=== PATIENT | male | born 1970 | race African-American/Black ===

== ENCOUNTER 2021-03-02 14:28 | Inpatient (IN) | payer OTHER ==
[2021-03-02 15:12] VITALS: BMI 21.2
[2021-03-02] MEDS ORDERED: ACETAMINOPHEN 325 MG TABLET (FP) PO PRN ×2 (16:46)
[2021-03-02] MEDS ORDERED: diazePAM 5 MG TABLET PO PRN (16:46)
[2021-03-02] MEDS ORDERED: MAGNESIUM HYDROX 2400MG/30ML ORAL SUSPENSION 30 ML CUP PO PRN (16:46)
[2021-03-02] MEDS ORDERED: NICOTINE POLACRILEX 2 MG GUM BUC PRN (16:46)
[2021-03-02] MEDS ORDERED: NICOTINE 10 MG CARTRIDGE (INHALER) IH PRN (16:46)
[2021-03-02] MEDS ORDERED: methaDONE HCL 10 MG TABLET (FOR DETOX USE ONLY) PO ONE (16:46)
[2021-03-02] MEDS ORDERED: clonazePAM 0.5 MG ODT TABLETS SL PRN (16:46)
[2021-03-02] MEDS ORDERED: NALOXONE HCL 0.4 MG/ML VIAL IM PRN (16:46)
[2021-03-02] MEDS ORDERED: MAG HYDROX/AL HYDROX/SIMETH 30 ML UNIT-DOSE CUP PO PRN (16:46)
[2021-03-02] MEDS ORDERED: MENTHOL/PHENOL 1 EACH UD MM PRN (16:46)
[2021-03-02] MEDS ORDERED: MAGNESIUM CITRATE 300 ML BOTTLE PO PRN (16:46)
[2021-03-02] MEDS ORDERED: diazePAM 5 MG TABLET ONE ×2 (20:34→23:50)
[2021-03-02] MEDS ORDERED: methaDONE HCL 10 MG TABLET (FOR DETOX USE ONLY) ONE (20:34)
[2021-03-02] MEDS: diazePAM 5 MG TABLET PO SCH ×2 (20:37→23:50)
[2021-03-02] MEDS: MELATONIN 5 MG TABLETS PO SCH (23:48)
[2021-03-02] MEDS: THIAMINE HCL 100 MG TABLET (FP) PO SCH (23:49)
[2021-03-03] MEDS ORDERED: cloNIDine HCL 0.1 MG TABLET ONE ×2 (04:41→10:33)
[2021-03-03] MEDS ORDERED: diazePAM 5 MG TABLET ONE ×2 (04:41→10:31)
[2021-03-03] MEDS ORDERED: IBUPROFEN 400 MG TABLET (FP) PO ONE (04:42)
[2021-03-03] MEDS: IBUPROFEN 400 MG TABLET (FP) PO PRN (04:44)
[2021-03-03] MEDS: cloNIDine HCL 0.1 MG TABLET PO PRN ×2 (04:45→10:35)
[2021-03-03] MEDS: diazePAM 5 MG TABLET PO SCH ×4 (04:45→22:23)
[2021-03-03] MEDS: metFORMIN HCL 500 MG TABLET (FP) PO SCH ×2 (07:07→17:15)
[2021-03-03 10:18] LABS: HEMATOCRIT 29.6 % (35.4-49); HEMOGLOBIN 10.6 GM/dL (11.7-16.9); MCH 33.3 pg (25.7-33.7); MCHC 35.8 g/dl (32.0-35.9); MEAN PLT VOLUME 7.9 fl (7.5-11.1); PLATELET COUNT 262 10^3/uL (134-434); RBC 3.18 M/mm3 (4.00-5.60); RDW 12.1 % (11.9-15.9); WHITE BLOOD COUNT 5.2 K/mm3 (4.0-10.0)
[2021-03-03 10:21] LABS: CALCIUM 7.9 mg/dL (8.5-10.1)
[2021-03-03 10:23] LABS: ALBUMIN 2.5 g/dl (3.4-5.0); BLOOD UREA NITROGEN 16.5 mg/dL (7-18)
[2021-03-03 10:26] LABS: CREATININE 1.2 mg/dL (0.55-1.3)
[2021-03-03 10:27] LABS: BILIRUBIN,TOTAL 0.4 mg/dL (0.2-1); TOT PROT 5.7 g/dl (6.4-8.2)
[2021-03-03] MEDS ORDERED: methaDONE HCL 10 MG TABLET (FOR DETOX USE ONLY) ONE (10:32)
[2021-03-03] MEDS: PRENATAL VITAMINS W/ FOLIC ACID TABLET (FP) PO SCH (10:36)
[2021-03-03] MEDS: ASPIRIN COATED 81 MG TABLET.EC PO SCH (13:19)
[2021-03-03] MEDS: BISMUTH SUBSALICYLATE 524 MG/30 ML PO PRN ×2 (18:00→22:25)
[2021-03-03] MEDS: THIAMINE HCL 100 MG TABLET (FP) PO SCH (22:23)
[2021-03-03] MEDS: MELATONIN 5 MG TABLETS PO SCH (22:23)
[2021-03-04] MEDS: diazePAM 5 MG TABLET PO SCH ×3 (05:51→22:22)
[2021-03-04] MEDS: metFORMIN HCL 500 MG TABLET (FP) PO SCH ×2 (06:41→17:23)
[2021-03-04] MEDS ORDERED: methaDONE HCL 10 MG TABLET (FOR DETOX USE ONLY) PO ONE (10:00)
[2021-03-04] MEDS: ASPIRIN COATED 81 MG TABLET.EC PO SCH (10:25)
[2021-03-04] MEDS: PRENATAL VITAMINS W/ FOLIC ACID TABLET (FP) PO SCH (10:25)
[2021-03-04] MEDS: BISMUTH SUBSALICYLATE 524 MG/30 ML PO PRN (10:27)
[2021-03-04] MEDS: cloNIDine HCL 0.1 MG TABLET PO PRN ×2 (17:51→22:15)
[2021-03-04] MEDS: THIAMINE HCL 100 MG TABLET (FP) PO SCH (22:15)
[2021-03-04] MEDS: MELATONIN 5 MG TABLETS PO SCH (22:16)
[2021-03-05] MEDS: diazePAM 5 MG TABLET PO SCH ×2 (05:56→17:41)
[2021-03-05] MEDS: IBUPROFEN 400 MG TABLET (FP) PO PRN ×2 (06:41→21:53)
[2021-03-05] MEDS: metFORMIN HCL 500 MG TABLET (FP) PO SCH ×2 (07:14→17:38)
[2021-03-05] MEDS: METHOCARBAMOL 500 MG TABLET PO PRN ×2 (08:52→17:38)
[2021-03-05] MEDS ORDERED: methaDONE HCL 10 MG TABLET (FOR DETOX USE ONLY) ONE (09:24)
[2021-03-05] MEDS: ASPIRIN COATED 81 MG TABLET.EC PO SCH (10:20)
[2021-03-05] MEDS: PRENATAL VITAMINS W/ FOLIC ACID TABLET (FP) PO SCH (10:20)
[2021-03-05] MEDS: MELATONIN 5 MG TABLETS PO SCH (21:52)
[2021-03-05] MEDS: THIAMINE HCL 100 MG TABLET (FP) PO SCH (21:52)
[2021-03-06] MEDS: IBUPROFEN 400 MG TABLET (FP) PO PRN ×2 (05:48→22:06)
[2021-03-06] MEDS ORDERED: diazePAM 5 MG TABLET PO ONE (06:00)
[2021-03-06] MEDS: metFORMIN HCL 500 MG TABLET (FP) PO SCH ×2 (06:34→16:36)
[2021-03-06] MEDS ORDERED: methaDONE HCL 10 MG TABLET (FOR DETOX USE ONLY) PO ONE (10:00)
[2021-03-06] MEDS: PRENATAL VITAMINS W/ FOLIC ACID TABLET (FP) PO SCH (10:04)
[2021-03-06] MEDS: ASPIRIN COATED 81 MG TABLET.EC PO SCH (10:04)
[2021-03-06] MEDS: METHOCARBAMOL 500 MG TABLET PO PRN ×2 (10:06→22:06)
[2021-03-06] MEDS: amLODIPine BESYLATE 5 MG TABLET (FP) PO SCH (14:01)
[2021-03-06] MEDS: INSULIN SLIDING SCALE (NOVOLOG) 1 VIAL SQ SCH (16:31)
[2021-03-06] MEDS ORDERED: INSULIN (NOVOLOG) ASPART 100 UNITS/ML 10ML VIAL ONE (16:33)
[2021-03-06] MEDS: THIAMINE HCL 100 MG TABLET (FP) PO SCH (22:04)
[2021-03-06] MEDS: MELATONIN 5 MG TABLETS PO SCH (22:05)
[2021-03-07] MEDS: metFORMIN HCL 500 MG TABLET (FP) PO SCH (05:59)
[2021-03-07] MEDS: METHOCARBAMOL 500 MG TABLET PO PRN (06:02)
[2021-03-07 07:09] VITALS: BP 159/91; PULSE 68; TEMP 98.7
[2021-03-07] MEDS: INSULIN SLIDING SCALE (NOVOLOG) 1 VIAL SQ SCH (07:30)
[2021-03-07] MEDS: PRENATAL VITAMINS W/ FOLIC ACID TABLET (FP) PO SCH (09:01)
[2021-03-07] MEDS: ASPIRIN COATED 81 MG TABLET.EC PO SCH (09:01)
[2021-03-07] MEDS: amLODIPine BESYLATE 5 MG TABLET (FP) PO SCH (09:01)
== END 2021-03-07 09:05 | disposition home or self-care (01) | DRG 773 ==
LOC: YASAS 14:28 → Y3N 03-03 12:35 → Y6N 03-03 13:11
PROVIDERS: ADMIT Allergy & Immunology; ATTEND Allergy & Immunology
PROC: HZ2ZZZZ Detoxification Services for Substance Abuse Treatment (ICD-10-PCS; principal; 2021-03-03)
DX: F11.23 Opioid dependence with withdrawal (principal); F10.230 Alcohol dependence with withdrawal, uncomplicated; F17.213 Nicotine dependence, cigarettes, with withdrawal; I10 Essential (primary) hypertension; E11.9 Type 2 diabetes mellitus without complications; Z79.84 Long term (current) use of oral hypoglycemic drugs; Z86.19 Personal history of other infectious and parasitic diseases
CPT/HCPCS: 36415; 80053; 82962; 85027; 86593; 86780; 93005; 93010; C9803; J0735; U0003; U0005